=== PATIENT | female | born 1940 | race Hispanic/Latino ===

== ENCOUNTER 2017-07-03 07:25 | Day surgery (SDC) | payer OTHER ==
[~2017-07-03] VITALS: Ht 154.9 cm; Wt 64.4 kg
[~2017-07-03 07:25] MED LIST: ACET-2247 PO; ALEN70TA47 PO; AMLO2.5T PO; ATOR20TA65 PO; LORA5SOL62 PO; LOSA25TA21 PO; METF500T6 PO; OMEP-272 PO; SODIUM CHLORIDE 0.9% 1000ML 1,000 ML IV ONE
[2017-07-03 07:59] VITALS: BP 135/59
== END 2017-07-03 10:05 ==
LOC: DAH 07:25 → ENDO 07:25
PROVIDERS: ATTEND Internal Medicine
DX: K83.8 Other specified diseases of biliary tract (principal); I10 Essential (primary) hypertension; K21.9 Gastro-esophageal reflux disease without esophagitis; J45.909 Unspecified asthma, uncomplicated; E78.4 Other hyperlipidemia; Z90.49 Acquired absence of other specified parts of digestive tract; Z90.710 Acquired absence of both cervix and uterus; E11.9 Type 2 diabetes mellitus without complications; Z79.84 Long term (current) use of oral hypoglycemic drugs; Z79.899 Other long term (current) drug therapy
CPT/HCPCS: 43237; 82948 ×2; 93005; A4606; J7030; 43231

== ENCOUNTER 2018-12-17 09:47 | Inpatient (IN) | payer OTHER ==
[~2018-12-17] VITALS: Ht 157.5 cm; Wt 68.0 kg
[~2018-12-17 09:47] MED LIST changes: +ALEN70TA10 PO; -ALEN70TA47 PO; -AMLO2.5T PO; +AMLO2.5T4 PO; -LOSA25TA21 PO; +LOSA25TA41 PO; +METF-444 PO; -METF500T6 PO; -SODIUM CHLORIDE 0.9% 1000ML 1,000 ML IV ONE
[2018-12-17] MEDS ORDERED: ONDANSETRON HCL 4 MG/2 ML VIAL ONE (09:59)
[2018-12-17] MEDS ORDERED: SODIUM CHLORIDE 0.9% 1000ML 1,000 ML IV ONE ×2 (09:59→13:26)
[2018-12-17 10:28] LABS: BASOPHILS % (AUTO) 0.3 % (0.0-5.0); EOSINOPHILS % (AUTO) 0.1 % (0.0-8.0); HEMATOCRIT 43.1 % (36-48); LYMPHOCYTES % (AUTO) 8.1 % (21.0-51.0); MEAN CORPUSCULAR HEMOGLOBIN 28.2 pg (27.0-33.0); MEAN CORPUSCULAR HGB CONC 33.3 g/dL (32.0-36.0); MEAN CORPUSCULAR VOLUME 84.5 fL (79-99); MONOCYTES % (AUTO) 1.3 % (3.0-13.0); NEUTROPHILS % (AUTO) 90.2 % (40.0-77.0); NUCLEATED RED BLOOD CELLS 0.2 % (0.0-0.19); PLATELET COUNT (AUTO) 169 K/uL (130-400); RED CELL DISTRIBUTION WIDTH 13.9 % (11.0-15.5); WHITE BLOOD COUNT (AUTO) 22.5 K/uL (4.8-10.8)
[2018-12-17 10:30] LABS: CREATININE 0.6 mg/dL (0.5-1.5); POTASSIUM 3.7 mmol/L (3.5-5.1)
[2018-12-17 10:35] LABS: ALBUMIN 3.6 g/dL (3.5-5.0); BILIRUBIN,DIRECT 0.4 mg/dL (0.0-0.3); BILIRUBIN,TOTAL 0.7 mg/dL (0.2-1.0); TOTAL PROTEIN, SERUM 7.3 g/dL (6.0-8.3)
[2018-12-17 11:05] LABS: INR 0.95 (0.85-1.15); PARTIAL THROMBOPLASTIN TIME 23.8 SEC (26.3-35.5)
[2018-12-17] MEDS ORDERED: MORPHINE SULFATE 4 MG/1ML SYG ONE (11:13)
[2018-12-17] MEDS ORDERED: ZOSYN 3.375GM+NS 50ML 50 ML IV ONE ×4 (11:13→23:30)
[2018-12-17] MEDS: SODIUM CHLORIDE 0.9% 1000ML 1,000 ML IV SCH ×2 (12:00→23:53)
[2018-12-17] MEDS ORDERED: INSULIN HUMULIN R 100 UNIT/ML 3ML ONE (14:03)
[2018-12-17 15:27] VITALS: BP 153/84
[2018-12-17] MEDS: ONDANSETRON HCL 4 MG/2 ML VIAL IVP PRN ×2 (16:42→21:12)
[2018-12-17] MEDS: MORPHINE SULFATE 2 MG/ML 1ML SYG IVP PRN ×2 (17:29→21:13)
[2018-12-17] MEDS ORDERED: SUCR1TAB2 PO (18:44)
[2018-12-17] MEDS ORDERED: CHOL200059 PO (18:44)
[2018-12-17] MEDS ORDERED: OMEP40CA13 PO (18:44)
[2018-12-17] MEDS ORDERED: DIPH25TA51 PO (18:44)
[2018-12-17 20:00] VITALS: BP 113/68
[2018-12-17] MEDS ORDERED: FAMOTIDINE/PF 20 MG/2 ML VIAL IV ONE ×2 (23:04→23:30)
[2018-12-17] MEDS ORDERED: SODIUM CHLORIDE 0.9% 250 ML IV ONE (23:05)
[2018-12-18] VITALS: BP 134/55
--- NOTE | 2018-12-18 01:03 | NUR ---
12/17/2018 22:00 MD BARR CAME BY, HE ORDERED ZOSYN Q 8 HOURS IV, INFORMED MD PATIENT ALLERGIC TO PCN YEARS AGO, ALLERGIC REACTION WAS RASHES ONLY NO DYSPNEA NR CHEST PAIN. ER ADMINISTERED ZOSYN IV ALREADY NO REACTION. MD SAID TO GO AHEAD AND ADMINISTERED IT. HOME MEDICATION HELD FOR NOW PER MD'S ORDER. NO EPISODE OF FEVER GUARDING PAIN, PRN MEDICATION GIVEN, MONITORED ACCORDINGLY
[2018-12-18 04:00] VITALS: BP 127/71
[2018-12-18 05:28] LABS: EOSINOPHILS % (AUTO) 0.1 % (0.0-8.0); HEMATOCRIT 46.1 % (36-48); LYMPHOCYTES % (AUTO) 4.5 % (21.0-51.0); MEAN CORPUSCULAR HEMOGLOBIN 28.5 pg (27.0-33.0); MEAN CORPUSCULAR HGB CONC 33.5 g/dL (32.0-36.0); MEAN CORPUSCULAR VOLUME 85.1 fL (79-99); MONOCYTES % (AUTO) 1.5 % (3.0-13.0); NEUTROPHILS % (AUTO) 93.9 % (40.0-77.0); PLATELET COUNT (AUTO) 159 K/uL (130-400); RED BLOOD CELL COUNT(AUTO) 5.42 MIL/uL (4.00-5.50)
[2018-12-18 05:55] LABS: ALBUMIN 2.6 g/dL (3.5-5.0); BILIRUBIN,TOTAL 1.5 mg/dL (0.2-1.0); CREATININE 0.9 mg/dL (0.5-1.5); POTASSIUM 3.7 mmol/L (3.5-5.1)
[2018-12-18 07:53] VITALS: BP 134/73
[2018-12-18] MEDS: ZOSYN 3.375GM+NS 50ML 50 ML IV SCH ×2 (09:42→16:44)
[2018-12-18] MEDS: FAMOTIDINE/PF 20 MG/2 ML VIAL IV SCH ×2 (09:43→20:39)
[2018-12-18 11:42] VITALS: BP 140/74
--- NOTE | 2018-12-18 12:09 | NUR ---
DCP CM met with pt discussed dc plans. Pt is independent prior to admission, lives at home w/spouse. Denies any equipments/services. Pt feels safe to go back home, still drives, spouse able to assist with transportation and needs as necessary. DC plan to home once stable. CM to cont to follow up. Addendum: 12/18/18 at 1220 by JAMES SPEAR LVN CM Amended: Links added.
[2018-12-18 16:28] VITALS: BP 145/81
[2018-12-18] MEDS: ONDANSETRON HCL 4 MG/2 ML VIAL IVP PRN (16:45)
[2018-12-18] MEDS: MORPHINE SULFATE 2 MG/ML 1ML SYG IVP PRN (16:45)
[2018-12-18] MEDS ORDERED: BISACODYL 10 MG SUPP.RECT RC SCH (18:15)
[2018-12-18 20:00] VITALS: BP 154/80
[2018-12-18] MEDS ORDERED: DEXTROSE 50%-WATER 50 ML DISP.SYRIN IV PRN (22:15)
[2018-12-18] MEDS: DEXTROSE 5 % AND 0.9 % NACL 1,000 ML IV SCH (22:15)
[2018-12-18] MEDS ORDERED: GLUCAGON 1MG KIT 1 MG ML IM PRN (22:15)
[2018-12-18] MEDS: INSULIN HUMULIN R 100 UNIT/ML 3ML SQ SCH (23:53)
[2018-12-19] VITALS (18 sets, daily range): BP systolic 123–172; BP diastolic 71–98
[2018-12-19] MEDS: ONDANSETRON HCL 4 MG/2 ML VIAL IVP PRN ×2 (01:11→08:52)
[2018-12-19] MEDS: ZOSYN 3.375GM+NS 50ML 50 ML IV SCH ×3 (01:11→17:15)
[2018-12-19 04:48] LABS: HEMATOCRIT 41.6 % (36-48); MEAN CORPUSCULAR HEMOGLOBIN 28.1 pg (27.0-33.0); MEAN CORPUSCULAR HGB CONC 33.3 g/dL (32.0-36.0); MEAN CORPUSCULAR VOLUME 84.5 fL (79-99); PLATELET COUNT (AUTO) 144 K/uL (130-400); RED BLOOD CELL COUNT(AUTO) 4.92 MIL/uL (4.00-5.50); RED CELL DISTRIBUTION WIDTH 14.3 % (11.0-15.5)
[2018-12-19 05:07] LABS: CREATININE 0.9 mg/dL (0.5-1.5); POTASSIUM 3.1 mmol/L (3.5-5.1)
[2018-12-19] MEDS: INSULIN HUMULIN R 100 UNIT/ML 3ML SQ SCH ×3 (06:00→18:00)
[2018-12-19] MEDS: FAMOTIDINE/PF 20 MG/2 ML VIAL IV SCH ×2 (08:52→21:24)
[2018-12-19] MEDS: ENOXAPARIN SODIUM 30 MG/0.3 ML SQ SCH (08:53)
--- NOTE | 2018-12-19 08:55 | NUR ---
DR RONNA MACIAS CALLED BACK. NEW ORDERS RECEIVED AND CARRIED OUT. DR. MACIAS WANTS TO KNOW THE RESULTS OF MRC AND US ABD.
[2018-12-19] MEDS ORDERED: SODIUM CHLORIDE 0.9% 1000ML 1,000 ML IV SCH ×2 (09:15→09:18)
[2018-12-19] MEDS: DEXTROSE 5 % AND 0.9 % NACL 1,000 ML IV SCH ×2 (10:27→23:47)
[2018-12-19] MEDS: MAGNESIUM 2GM PREMIX 50ML 50 ML IV PRN (12:30)
--- NOTE | 2018-12-19 13:56 | NUR ---
DR MACIAS CALLED BACK. NEW ORDERS RECEIVED AND CARRIED OUT.
[2018-12-19] MEDS: POTASSIUM CHLORIDE 20MEQ/100ML 100 ML IV PRN (15:28)
[2018-12-19] MEDS: LIDOCAINE HCL-MPF 1% 2ML VIAL IV PRN (15:28)
[2018-12-19] MEDS ORDERED: PROPOFOL 10 MG/ML 20ML VIAL IV ONE ×2 (17:53)
[2018-12-19] MEDS ORDERED: SUCCINYLCHOLINE 200MG/10ML SYR ONE (17:53)
[2018-12-19] MEDS ORDERED: IOHEXOL-350 50ML VIAL IV ONE (17:54)
--- NOTE | 2018-12-19 18:30 | NUR ---
ERCP NOT DONE. FAILED BILIARY CANNULATION. PATIENT CAN START ON FULL LIQUID DIET. ACCORDING TO FAMILY. DR MACIAS TOLD THEM THAT HE WAS GOING TO DO ANOTHER PROCEDURE NEXT WEEK. NO ORDERS RECEIVED YET. WILL CONTINUE TO FOLLOW UP.
[2018-12-19] MEDS ORDERED: INDOMETHACIN 50 MG SUPP.RECT RC SCH (18:45)
--- NOTE | 2018-12-19 20:38 | NUR ---
kuye rounds patient speaking with patient at this time. no new orders given
[2018-12-20] MEDS: ZOSYN 3.375GM+NS 50ML 50 ML IV SCH ×3 (00:47→16:38)
[2018-12-20] MEDS: POTASSIUM CHLORIDE 20MEQ/100ML 100 ML IV PRN ×2 (00:51→06:16)
[2018-12-20] MEDS: LIDOCAINE HCL-MPF 1% 2ML VIAL IV PRN ×2 (01:02→06:15)
[2018-12-20 04:00] VITALS: BP 140/76
[2018-12-20 05:01] LABS: HEMATOCRIT 35.4 % (36-48); MEAN CORPUSCULAR HEMOGLOBIN 28.6 pg (27.0-33.0); MEAN CORPUSCULAR HGB CONC 33.6 g/dL (32.0-36.0); MEAN CORPUSCULAR VOLUME 85.1 fL (79-99); PLATELET COUNT (AUTO) 125 K/uL (130-400); RED BLOOD CELL COUNT(AUTO) 4.17 MIL/uL (4.00-5.50); RED CELL DISTRIBUTION WIDTH 14.3 % (11.0-15.5); WHITE BLOOD COUNT (AUTO) 15.2 K/uL (4.8-10.8)
[2018-12-20 05:09] LABS: INR 0.96 (0.85-1.15); PROTHROMBIN TIME 10.1 SEC (9.6-11.6)
[2018-12-20] MEDS: INSULIN HUMULIN R 100 UNIT/ML 3ML SQ SCH ×4 (05:11→20:14)
[2018-12-20 05:21] LABS: ALBUMIN 2.1 g/dL (3.5-5.0); BILIRUBIN,TOTAL 0.7 mg/dL (0.2-1.0); CREATININE 0.7 mg/dL (0.5-1.5); POTASSIUM 3.3 mmol/L (3.5-5.1); TOTAL PROTEIN, SERUM 5.6 g/dL (6.0-8.3)
[2018-12-20 05:34] LABS: BAND NEUTROPHILS % (MANUAL) 15 % (0-2); LYMPHOCYTES % (MANUAL) 2 % (22-44); MAGNESIUM 2.2 mg/dL (1.80-2.40); MAN.DIFF COMMENT-IMPRESSION MANUAL DIFFERENTIAL; MONOCYTES % (MANUAL) 1 % (2-9); REACTIVE LYMPHOCYTES 1 % (0-0); SEGMENTED NEUTROPHILS % 81 % (40-70)
[2018-12-20 08:10] VITALS: BP 135/80
[2018-12-20 08:11] LABS: HEPATITIS A ANTIBODY IGM Negative (Negative); HEPATITIS B CORE IGM Negative (Negative); HEPATITIS Bs ANTIGEN SCREEN P Negative (Negative)
[2018-12-20] MEDS: ENOXAPARIN SODIUM 30 MG/0.3 ML SQ SCH (08:26)
[2018-12-20] MEDS: FAMOTIDINE/PF 20 MG/2 ML VIAL IV SCH ×2 (08:27→20:14)
[2018-12-20] MEDS: DEXTROSE 5 % AND 0.9 % NACL 1,000 ML IV SCH ×3 (08:27→19:47)
[2018-12-20 12:15] VITALS: BP 136/74
[2018-12-20 15:35] VITALS: BP 146/76
[2018-12-20] MEDS: MORPHINE SULFATE 2 MG/ML 1ML SYG IVP PRN (20:21)
[2018-12-20 20:32] VITALS: BP 146/72
[2018-12-20 23:48] VITALS: BP 142/77
[2018-12-21] MEDS: ZOSYN 3.375GM+NS 50ML 50 ML IV SCH ×2 (02:16→08:35)
[2018-12-21] MEDS: DEXTROSE 5 % AND 0.9 % NACL 1,000 ML IV SCH ×4 (03:35→22:27)
[2018-12-21 04:19] VITALS: BP 157/87
[2018-12-21] MEDS: INSULIN HUMULIN R 100 UNIT/ML 3ML SQ SCH ×4 (05:23→20:13)
[2018-12-21 08:01] VITALS: BP 147/79
[2018-12-21 08:15] LABS: MEAN CORPUSCULAR HEMOGLOBIN 28.3 pg (27.0-33.0); MEAN CORPUSCULAR HGB CONC 33.6 g/dL (32.0-36.0); PLATELET COUNT (AUTO) 140 K/uL (130-400); RED BLOOD CELL COUNT(AUTO) 4.29 MIL/uL (4.00-5.50); RED CELL DISTRIBUTION WIDTH 14.3 % (11.0-15.5); WHITE BLOOD COUNT (AUTO) 17.5 K/uL (4.8-10.8)
[2018-12-21] MEDS: ENOXAPARIN SODIUM 30 MG/0.3 ML SQ SCH (08:35)
[2018-12-21] MEDS: FAMOTIDINE/PF 20 MG/2 ML VIAL IV SCH ×2 (08:35→20:12)
[2018-12-21 08:40] LABS: ALBUMIN 2.2 g/dL (3.5-5.0); BILIRUBIN,TOTAL 0.9 mg/dL (0.2-1.0); CREATININE 0.7 mg/dL (0.5-1.5); TOTAL PROTEIN, SERUM 6.2 g/dL (6.0-8.3)
[2018-12-21 12:16] VITALS: BP 150/73
[2018-12-21 15:49] VITALS: BP 153/79
--- NOTE | 2018-12-21 16:09 | NUR ---
DR. COLLEEN GENAO. WAITING MUD WORKER BACK.
--- NOTE | 2018-12-21 16:19 | NUR ---
DR MACIAS CALLED BACK. PATIENT'S LABS REVIEWED OVER THE PHONE. DR MACIAS STATES PT CONDITION HAS BEEN RESOLVED. NO FURTHER ORDERS. PATIENT MAY FOLLOW UP AN OUTPATIENT IN 1 WEEK.
--- NOTE | 2018-12-21 16:24 | NUR ---
DR. BARR AWARE THAT DR. MACIAS S/O ON THE CASE. NEW ORDERS RECEIVED TO CHANGE ZOSYN TO MERREM.
[2018-12-21] MEDS: MEROPENEM 1 GM VIAL IVP SCH (17:42)
[2018-12-21 19:42] VITALS: BP 142/73
--- NOTE | 2018-12-21 20:21 | NUR ---
GI RECEIVED PHONE CALL FROM CARINA OQUENDO FROM GI LAB. SHE HAS SPOKEN TO DR. MACIAS WHO HAS CX'D ERCP THAT WAS SCHEDULED FOR SATURDAY
[2018-12-22 00:23] VITALS: BP 152/69
[2018-12-22] MEDS: MORPHINE SULFATE 2 MG/ML 1ML SYG IVP PRN ×2 (01:14→09:14)
[2018-12-22] MEDS: ONDANSETRON HCL 4 MG/2 ML VIAL IVP PRN (01:14)
[2018-12-22 04:24] VITALS: BP 125/68
[2018-12-22] MEDS: DEXTROSE 5 % AND 0.9 % NACL 1,000 ML IV SCH ×2 (05:07→11:47)
[2018-12-22] MEDS: MEROPENEM 1 GM VIAL IVP SCH ×2 (05:45→17:45)
[2018-12-22] MEDS: INSULIN HUMULIN R 100 UNIT/ML 3ML SQ SCH ×4 (05:45→20:41)
[2018-12-22 06:20] LABS: HEMATOCRIT 36.2 % (36-48); MEAN CORPUSCULAR HEMOGLOBIN 28.5 pg (27.0-33.0); MEAN CORPUSCULAR VOLUME 83.7 fL (79-99); PLATELET COUNT (AUTO) 140 K/uL (130-400); RED BLOOD CELL COUNT(AUTO) 4.33 MIL/uL (4.00-5.50); RED CELL DISTRIBUTION WIDTH 13.9 % (11.0-15.5)
[2018-12-22 06:38] LABS: ALBUMIN 2.2 g/dL (3.5-5.0); BILIRUBIN,TOTAL 0.7 mg/dL (0.2-1.0); CREATININE 0.7 mg/dL (0.5-1.5); TOTAL PROTEIN, SERUM 6.3 g/dL (6.0-8.3)
[2018-12-22 07:13] LABS: POTASSIUM 3.8 mmol/L (3.5-5.1)
[2018-12-22 07:30] VITALS: BP 143/77
[2018-12-22] MEDS: FAMOTIDINE/PF 20 MG/2 ML VIAL IV SCH (09:09)
[2018-12-22] MEDS: ENOXAPARIN SODIUM 30 MG/0.3 ML SQ SCH (09:13)
--- NOTE | 2018-12-22 09:31 | NUR ---
pt reported to me that she has been having diarrhia after every meal since she came into the hospital and that it is turning very dark; after further discussion with her she has let me know that she has a hx of gi ulcers and normally takes sucrafate for this; pt has her meds at bedside, i went over them and compared to what is in the computer and there all correct; i have paged dr schroeder to ask about resuming home meds and to let him know about dark colored stools; pending call back
--- NOTE | 2018-12-22 09:42 | NUR ---
paged if we can start the home meds and also to report to him that the patient reported that she is having a black tarry stool.
--- NOTE | 2018-12-22 10:10 | NUR ---
i received a call from dr Harvinder Cullen and informed him of pt having dark stools and diarrhia; he stated to start her on protonix, continue her home sucrafate and ok to d/c from his standpoint and follow up with him in a week.
[2018-12-22 11:00] VITALS: BP 137/61
[2018-12-22] MEDS: SUCRALFATE 1 GM TABLET PO SCH ×3 (12:04→20:40)
--- NOTE | 2018-12-22 12:15 | NUR ---
received phone call from dr schroeder and was ordered to resume home meds and stop lovenox. no d/c home orders today
[2018-12-22 16:00] VITALS: BP 159/78
--- NOTE | 2018-12-22 18:09 | NUR ---
Nutrition Intervention: Nutrition screen based on LOS x 5 days. Pt. on GI Soft Fred diet with good p.o. intake, as per pt. Labs reviewed(Alb 2.2, BG 157, Lipase 348). Spoke with pt. regarding protein supplementation and pt. agreed to try. LBM: 12/22/18. SR-21, elastic. BMI: 27.4, overweight for age. Pt. / Family educated on Pancreatitis diet and provided with education material. Pt. verbalized understanding. Recommendations: 1) Rec. 60gm CCD GI Soft Fred diet. 2) Rec. 30ml ProMod BID with B'fast and Dinner meals. 3) Pancreatitis diet education given to patient / family. 4) Continue to monitor pt's nutritional status. 5) Consult RD as nutrition concerns arise. Addendum: 12/22/18 at [address] Amended: Links added.
[2018-12-22 20:00] VITALS: BP 144/67
[2018-12-23] VITALS: BP 132/72
[2018-12-23 04:00] VITALS: BP 128/68
[2018-12-23] MEDS: MEROPENEM 1 GM VIAL IVP SCH ×2 (05:00→17:53)
[2018-12-23 07:00] VITALS: BP 148/66
[2018-12-23] MEDS: SUCRALFATE 1 GM TABLET PO SCH ×4 (07:30→20:37)
[2018-12-23] MEDS: INSULIN HUMULIN R 100 UNIT/ML 3ML SQ SCH ×4 (07:30→21:00)
[2018-12-23 08:40] LABS: HEMATOCRIT 38.1 % (36-48); MEAN CORPUSCULAR HEMOGLOBIN 28.1 pg (27.0-33.0); MEAN CORPUSCULAR HGB CONC 34.2 g/dL (32.0-36.0); MEAN CORPUSCULAR VOLUME 81.9 fL (79-99); NUCLEATED RED BLOOD CELLS 0.1 % (0.0-0.19); PLATELET COUNT (AUTO) 181 K/uL (130-400); RED BLOOD CELL COUNT(AUTO) 4.65 MIL/uL (4.00-5.50); RED CELL DISTRIBUTION WIDTH 13.2 % (11.0-15.5); WHITE BLOOD COUNT (AUTO) 17.3 K/uL (4.8-10.8)
[2018-12-23 08:47] LABS: CREATININE 0.6 mg/dL (0.5-1.5)
[2018-12-23 08:56] LABS: POTASSIUM 2.5 mmol/L (3.5-5.1)
--- NOTE | 2018-12-23 08:59 | NUR ---
PAGED DR. BARR OF THE POTASSIUM OF 2.5 WILL WAIT FOR HIS CALL AND ORDERS.
[2018-12-23] MEDS: **HM** VIT D3 5000 UNITS PO SCH (09:00)
[2018-12-23] MEDS: ATORVASTATIN CALCIUM 20 MG TABLET PO SCH (09:12)
[2018-12-23] MEDS: AMLODIPINE BESYLATE 2.5 MG TAB PO SCH (09:12)
[2018-12-23] MEDS: PANTOPRAZOLE SODIUM 40 MG TABLET.DR PO SCH (09:12)
[2018-12-23] MEDS: LIDOCAINE HCL-MPF 1% 2ML VIAL IV PRN ×2 (09:21→17:57)
[2018-12-23] MEDS: POTASSIUM CHLORIDE 20MEQ/100ML 100 ML IV PRN ×2 (09:22→17:57)
--- NOTE | 2018-12-23 09:34 | NUR ---
pt's K+ level 2.5, 20 meq kcl ivpb slow initiated and lidocaine given to help with burn
[2018-12-23 09:54] LABS: BAND NEUTROPHILS % (MANUAL) 4 % (0-2); LYMPHOCYTES % (MANUAL) 9 % (22-44); MONOCYTES % (MANUAL) 5 % (2-9); SEGMENTED NEUTROPHILS % 82 % (40-70)
[2018-12-23 09:55] LABS: MAN.DIFF COMMENT-IMPRESSION MANUAL DIFFERENTIAL; PLATELET MORPHOLOGY COMMENT ADEQUATE
[2018-12-23] MEDS: MAGNESIUM 2GM PREMIX 50ML 50 ML IV PRN (10:14)
[2018-12-23 11:00] VITALS: BP 122/65
[2018-12-23 16:00] VITALS: BP 120/57
--- NOTE | 2018-12-23 18:07 | NUR ---
started 2nd slow ivpb of 20 meq of kcl per potassium protocol. lidocaine added.
[2018-12-23 20:00] VITALS: BP 131/63
[2018-12-24] VITALS: BP 134/65
[2018-12-24] MEDS: LIDOCAINE HCL-MPF 1% 2ML VIAL IV PRN ×2 (02:30→06:20)
[2018-12-24] MEDS: POTASSIUM CHLORIDE 20MEQ/100ML 100 ML IV PRN ×3 (02:31→11:39)
[2018-12-24 04:00] VITALS: BP 140/62
[2018-12-24 05:33] LABS: HEMATOCRIT 33.3 % (36-48); MEAN CORPUSCULAR HEMOGLOBIN 28.3 pg (27.0-33.0); MEAN CORPUSCULAR HGB CONC 34.2 g/dL (32.0-36.0); MEAN CORPUSCULAR VOLUME 82.7 fL (79-99); NUCLEATED RED BLOOD CELLS 0.1 % (0.0-0.19); PLATELET COUNT (AUTO) 179 K/uL (130-400); RED BLOOD CELL COUNT(AUTO) 4.02 MIL/uL (4.00-5.50); RED CELL DISTRIBUTION WIDTH 13.5 % (11.0-15.5); WHITE BLOOD COUNT (AUTO) 14.7 K/uL (4.8-10.8)
[2018-12-24 05:51] LABS: ALBUMIN 1.8 g/dL (3.5-5.0); BILIRUBIN,TOTAL 0.5 mg/dL (0.2-1.0); CREATININE 0.5 mg/dL (0.5-1.5); MAGNESIUM 2.4 mg/dL (1.80-2.40); TOTAL PROTEIN, SERUM 5.2 g/dL (6.0-8.3)
[2018-12-24] MEDS: SUCRALFATE 1 GM TABLET PO SCH ×3 (06:19→16:30)
[2018-12-24] MEDS: INSULIN HUMULIN R 100 UNIT/ML 3ML SQ SCH ×3 (06:19→16:30)
[2018-12-24] MEDS: MEROPENEM 1 GM VIAL IVP SCH ×2 (06:19→18:11)
[2018-12-24 08:00] VITALS: BP 126/67
[2018-12-24] MEDS: AMLODIPINE BESYLATE 2.5 MG TAB PO SCH (08:30)
[2018-12-24] MEDS: ATORVASTATIN CALCIUM 20 MG TABLET PO SCH (08:30)
[2018-12-24] MEDS: PANTOPRAZOLE SODIUM 40 MG TABLET.DR PO SCH (08:30)
[2018-12-24] MEDS: **HM** VIT D3 5000 UNITS PO SCH (09:00)
--- NOTE | 2018-12-24 11:42 | NUR ---
potassium level 3.0 i have started 2nd bag of 20meq kcl per potassium protocol; will recheck level once complete.
[2018-12-24 12:00] VITALS: BP 134/72
[2018-12-24 16:00] VITALS: BP 122/65
--- NOTE | 2018-12-24 18:43 | NUR ---
Dr Sewell here and has given verbal order that pt is ok to be discharged home and for her to follow up with her pcp in [place] and dr Harvinder Cullen in 1 week and to continue her prilosec that she is on at home for ppi prevention. no new scripts he states
--- NOTE | 2018-12-24 19:28 | NUR ---
pt and spouse stated understanding of all d/c instructions for after care for pancreatitis, diarrhia w/ blood, and hypokalemia; iv access removed; pt's driving her home.
== END 2018-12-24 19:25 | disposition home or self-care (01) | DRG 439 ==
LOC: EDH 09:47 → EDHIP 11:37 → OBSVTOIN 11:37 → 3AH 14:41
PROVIDERS: ADMIT Internal Medicine; ATTEND Internal Medicine
PROC: 0FJB8ZZ Inspection of Hepatobiliary Duct, Via Natural or Artificial Opening Endoscopic (ICD-10-PCS; principal; 2018-12-17)
DX: K85.10 Biliary acute pancreatitis without necrosis or infection (principal); K80.31 Calculus of bile duct with cholangitis, unspecified, with obstruction; K21.9 Gastro-esophageal reflux disease without esophagitis; I10 Essential (primary) hypertension; E11.9 Type 2 diabetes mellitus without complications; E78.5 Hyperlipidemia, unspecified; E83.42 Hypomagnesemia; E87.6 Hypokalemia; Z90.49 Acquired absence of other specified parts of digestive tract; Z88.0 Allergy status to penicillin
CPT/HCPCS: 36415; 43235; 71045; 74176; 74181; 74330; 76700; 80048; 80053; 80074; 80076; 82550; 82948; 83690; 83735; 84132; 84484; 85025; 85027; 85610; 85730; 86704; 86706; 87040; 87340; 87520; 93005; A4606; C1769; G0378; J0330; J1650; J1815; J2185; J2270; J2405; J2543; J2704; J3475; J3480; J3490; J7030; J7042; Q9967

== ENCOUNTER → 2024-06-18 | Outpatient (CLI) | payer OTHER ==
[~2024-06-18] MED LIST changes: -ACET-2247 PO; -ALEN70TA10 PO; +CHOL200059 PO; +DIPH25TA51 PO; -LORA5SOL62 PO; -LOSA25TA41 PO; -OMEP-272 PO; +OMEP40CA21 PO; +SUCR1TAB2 PO
--- NOTE | 2024-06-18 13:44 | HMCIMG ---
CT HEART SAVER PROMOTIONAL HISTORY: Calcium scoring COMPARISON: None TECHNIQUE: Computed tomography of the heart was performed with ECG gating and suspended respiration. Postprocessing was performed on a computer workstation to obtain diastolic phase images, determine calcium score and provide a quantitative assessment of extent of disease. This CT included only the heart. HeartSaver score is 467.10. Please see cardiac calcium score report. The available CT chest images show no acute finding. CT was performed with one or more following dose reduction techniques: automated exposure control, adjustment of the mA and kv according to patient's size, or use of a iterative reconstruction technique.
== END | disposition home or self-care (01) ==
LOC: RAH 12:43
PROVIDERS: ATTEND Internal Medicine Cardiovascular Disease
DX: Z13.6 Encounter for screening for cardiovascular disorders (principal)
CPT/HCPCS: 75571